=== PATIENT | male | born 1990 | race Two or more races ===

== ENCOUNTER 2017-12-27 20:34 | Emergency (ER) | payer SELFPAY ==
[~2017-12-27] VITALS: Ht 182.9 cm; Wt 102.1 kg
[2017-12-27 20:45] VITALS: BP 134/77
--- NOTE | 2017-12-27 20:53 | PHYS DOC ---
Adult General Chief Complaint Chief Complaint: Congestion HPI HPI Patient is a 27 year old male presents to the ED complaining of cough 4 days. States he has been coughing up green stuff. Associated symptoms include rhinorrhea, sore throat and subjective fever. States he is coughing so hard that he felt like he injured his right ribs. Has been taking dayquil and nyquil at home. Denies chest pain, headache, rash, conjunctivitis, diarrhea, abdominal pain, nausea/vomiting or syncope. Review of Systems Review of Systems Constitutional: Complains of subjective fever. Denies chills [] Eyes: Denies change in visual acuity, redness, or eye pain [] HENT: Complains of nasal congestion or sore throat [] Respiratory: Complains of cough. shortness of breath [] Cardiovascular: No additional information not addressed in HPI [] GI: Denies abdominal pain, nausea, vomiting, bloody stools or diarrhea [] : Denies dysuria or hematuria [] Musculoskeletal: Denies back pain or joint pain [] Integument: Denies rash or skin lesions [] Neurologic: Denies headache, focal weakness or sensory changes [] All other systems were reviewed and found to be within normal limits, except as documented in this note. Current Medications Current Medications Current Medications Medications (Trade) Dose Ordered Sig/[place] Start Time Stop Time Status Last Admin Dose Admin Albuterol/ Ipratropium (Duoneb) 3 ml 1X ONCE 12/27/17 21:15 12/27/17 21:16 DC 12/27/17 21:15 3 ML Ceftriaxone Sodium (Rocephin Im) 1 gm 1X ONCE 12/27/17 21:15 12/27/17 21:16 DC 12/27/17 21:35 1 GM Chlorphenir/ Hydrocodone Polistirex (Tussionex) 5 ml 1X ONCE 12/27/17 21:15 12/27/17 21:16 DC 12/27/17 21:34 5 ML Methylprednisolone Sodium Succinate (SOLU-Medrol 125MG VIAL) 125 mg 1X ONCE 12/27/17 21:15 12/27/17 21:16 DC 12/27/17 21:35 125 MG Allergies Allergies Allergies Coded Allergies Type Severity Reaction Last Updated Verified No Known Drug Allergies 12/27/17 No Physical Exam Physical Exam Constitutional: Well developed, well nourished, no acute distress, non-toxic appearance. [] HENT: Normocephalic, atraumatic, bilateral external ears normal, oropharynx moist, mild pharyngeal erythema. no oral exudates, nose normal. [] Eyes: PERRLA, EOMI, conjunctiva normal, no discharge. [] Neck: Normal range of motion, no tenderness, supple, no stridor. [] Cardiovascular:Heart rate regular rhythm, no murmur [] Lungs & Thorax: Bilateral breath sounds. mild wheezing bilaterally. Abdomen: Bowel sounds normal, soft, no tenderness, no masses, no pulsatile masses. [] Skin: Warm, dry, no erythema, no rash. [] Back: No tenderness, no CVA tenderness. [] Extremities: No tenderness, no cyanosis, no clubbing, ROM intact, no edema. [] Neurologic: Alert and oriented X 3, normal motor function, normal sensory function, no focal deficits noted. [] Psychologic: Affect normal, judgement normal, mood normal. [] Current Patient Data Vital Signs Vital Signs Date Time Temp Pulse Resp B/P (MAP) Pulse Ox O2 Delivery O2 Flow Rate FiO2 12/27/17 21:27 Room Air 12/27/17 20:45 98.5 80 20 134/77 (96) 98 98.5 EKG EKG [] Radiology/Procedures Radiology/Procedures PROCEDURE: CHEST PA & LATERAL AP and Lateral Views of the Chest 12/27/2017 8:45 PM Indication: short of breath, hx of pneumonia Comparison: None Findings: There is no focal consolidation or infiltrate identified. The cardiomediastinal silhouette is within normal limits. There is no evidence of pneumothorax or pleural effusion. No acute osseous abnormalities are identified. Impression: No evidence of acute cardiopulmonary process. [] Course & Med Decision Making Course & Med Decision Making Pertinent Labs and Imaging studies reviewed. (See chart for details) []Patient improved after breathing treatment. States he feeling much better. Patient is not tachypneic. O2 saturation is 98%. Patient given Solu-Medrol and Rocephin in the ED. Will discharge with cough suppressant, azithromycin and prednisone short course. Discussed symptomatic treatment at home. Discussed follow-up this coming week and reasons to return to the ED. Patient understands and agrees with plan. Dragon Disclaimer Dragon Disclaimer This electronic medical record was generated, in whole or in part, using a voice recognition dictation system. Departure Departure Impression: Primary Impression: Acute bronchitis Disposition: 01 HOME, SELF-CARE Condition: IMPROVED Referrals: GEOFFREY ROJAS MD Patient Instructions: Acute Bronchitis Scripts Guaifenesin/Codeine Phosphate (CHERATUSSIN AC SYRUP) 118 Ml Liquid 5 ML PO PRN Q6HRS, #120 ML Prov: RAVI VELÁZQUEZ 12/27/17 Albuterol Sulfate (PROAIR HFA INHALER) 8.5 Gm Hfa.aer.ad 1 PUFF INH PRN Q6HRS PRN for SHORTNESS OF BREATH, #1 INHALER 0 Refills Prov: RAVI VELÁZQUEZ 12/27/17 Azithromycin (AZITHROMYCIN TABLET) 250 Mg Tablet 1 PKG PO UD, #6 TAB Prov: RAVI VELÁZQUEZ 12/27/17 Prednisone (PREDNISONE) 20 Mg Tablet 2 TAB PO DAILY for 5 Days, #10 TAB Prov: RAVI VELÁZQUEZ 12/27/17 RAVI VELÁZQUEZ Dec 27, 2017 20:53
[2017-12-27] MEDS ORDERED: cefTRIAXone IM 1 GM VIAL IM ONE (21:15)
[2017-12-27] MEDS ORDERED: IPRATRPIUM/ALBUTEROL 0.5/2.5MG 3 ML NEBU. NEB ONE (21:15)
[2017-12-27] MEDS ORDERED: HYDROcodone/CHLORPHEN POLIS 5 ML SUS.ER.12H PO ONE (21:15)
[2017-12-27] MEDS ORDERED: methylPREDNISolone SOD SUCC PF 125 MG/2 ML VIAL. IM ONE (21:15)
[2017-12-27] MEDS ORDERED: PROAIR HFA8.5 GM INH (21:44)
[2017-12-27] MEDS ORDERED: AZIT250T6 PO (21:44)
[2017-12-27] MEDS ORDERED: GUAI118L20 PO (21:44)
[2017-12-27] MEDS ORDERED: PRED20TA PO (21:44)
--- NOTE | 2017-12-28 08:22 | RAD ---
AP and Lateral Views of the Chest 12/27/2017 8:45 PM Indication: short of breath, hx of pneumonia Comparison: None Findings: There is no focal consolidation or infiltrate identified. The cardiomediastinal silhouette is within normal limits. There is no evidence of pneumothorax or pleural effusion. No acute osseous abnormalities are identified. Impression: No evidence of acute cardiopulmonary process. Electronically signed by: Kalin Smart MD (12/28/2017 8:19 AM) [id number]
== END 2017-12-27 22:15 | disposition home or self-care (01) ==
LOC: ER 20:34
DX: J20.9 Acute bronchitis, unspecified (principal); J02.9 Acute pharyngitis, unspecified
CPT/HCPCS: 71046; 94640; 96372; 99284; J0696; J2930; J7620